=== PATIENT | male | born 1985 | race Two or more races ===

== ENCOUNTER 2017-05-20 14:05 | Emergency (ER) | payer BC ==
[~2017-05-20] VITALS: Ht 180.3 cm; Wt 136.1 kg
[2017-05-20] MEDS ORDERED: PROMETHAZINE HCL 25 MG/ML 1ML IM ONE (14:45)
[2017-05-20] MEDS ORDERED: MEPERIDINE HCL (50 MG/ML) 1 ML VIAL IM ONE (14:45)
[2017-05-20] MEDS ORDERED: diphenhdrAMINE HCL 50 MG/1 ML VL IV ONE (16:15)
[2017-05-20] MEDS ORDERED: MEPERIDINE HCL (25 MG/ML) 1ML VIAL IV ONE ×2 (16:15→17:00)
[2017-05-20] MEDS ORDERED: KETOROLAC TROMETH 30 MG/ML 1ML VIAL IV ONE (16:15)
[2017-05-20] MEDS ORDERED: SODIUM CHLORIDE 0.9% 1,000 ML IV ONE (16:30)
[2017-05-20 16:50] VITALS: BP 134/66
== END 2017-05-20 17:42 | disposition home or self-care (01) ==
LOC: ER 14:05
DX: S39.012A Strain of muscle, fascia and tendon of lower back, initial encounter (principal); M48.061 Spinal stenosis, lumbar region without neurogenic claudication; M54.16 Radiculopathy, lumbar region; G89.29 Other chronic pain; X58.XXXA Exposure to other specified factors, initial encounter; Y93.89 Activity, other specified; Y92.89 Other specified places as the place of occurrence of the external cause; Y99.8 Other external cause status
CPT/HCPCS: 72131; 96372; 96374; 96375; 99284; J1200; J1885; J2175; J2550; J7030